=== PATIENT | male | born 1965 | race Caucasian/White ===

== ENCOUNTER 2021-03-19 14:36 | Emergency (ER) | payer OTHER, SELFPAY ==
[2021-03-19 14:48] VITALS: BP 146/89; RESP 16; BMI 29.9
--- NOTE | 2021-03-19 15:42 | ED_ITS ---
HPI - General Adult General Chief complaint: Skin/Abscess/Foreign Body Stated complaint: rash ?poison kailash Time Seen by Provider: 03/19/21 15:40 History of Present Illness HPI narrative: Patient complains of poison kailash to chest legs arms and hands for several days, getting worse day by day, no fever no pain no throat swelling no difficulty breathing Related Data Previous Rx's Medication Instructions Recorded cetirizine 10 mg capsule 10 mg PO DAILY PRN #14 cap 03/19/21 prednisone 10 mg tablet 10 mg PO DAILY #10 tab 03/19/21 Allergies Allergy/AdvReac Type Severity Reaction Status Date / Time No Known Allergies Allergy Unverified 04/15/20 15:35 [No Known Allergies*] Review of Systems Review of Systems: Positive for rash Negatives are no dizziness no weakness no headache no neck pain no difficulty breathing or swallowing no throat swelling no joint pains Yes all other systems are reviewed and are negative [facility] Past Medical History Source: nursing notes reviewed Medical History (Updated 03/20/21 @ 00:01 by Aniket Smith) Hypertension Social History Social History Advance Directives: No Advance Directives Information Provided: No Physical Exam Vital Signs: Vital Signs: Last Vital Signs Resp 16 03/19/21 14:48 BP 146/89 H 03/19/21 14:48 Body Mass Index 29.9 General appearance is no acute distress Head is normocephalic atraumatic Pupils no redness or discharge Pharynx is clear with no redness swelling or exudate, no drooling, voice is normal Neck is supple Chest is clear to auscultation bilateral Extremities full range of motion x4 Skin there are multiple excoriated linear vesicular rashes on arms legs and trunk, no surrounding erythema no significant tenderness no fluctuance no eviden ce of cellulitis or abscess Course Course Course Narrative: Patient with poison kailash is treated with a prednisone taper and antihistamine Discharge Plan Discharge Clinical Impression: Poison kaliash Patient Disposition: Home, Self-Care Additional Instructions: We are doing a tapering course of prednisone which often helps with poison kailash You can use cetirizine for itch If needed at night before bed if the itching is bad you could take 50 mg of Benadryl Return any time if worse Prescriptions: New prednisone 10 mg tablet 10 mg PO DAILY Qty: 10 RF: 0 cetirizine 10 mg capsule 10 mg PO DAILY PRN (Reason: Itch and rash) Qty: 14 RF: 0 Interventions: ED Discharge Assessment Last Done: 03/19/21 15:57 Discharge Date/Time: 03/19/21 15:58
[2021-03-19] MEDS: Loratadine 10 MG TABLET PO (15:53)
[2021-03-19] MEDS: predniSONE 20 MG TABLET 60 MG PO (15:53)
== END 2021-03-19 15:58 | disposition home or self-care (01) ==
PROVIDERS: Emergency Provider Internal Medicine; PCP Internal Medicine
DX: L23.7 Allergic contact dermatitis due to plants, except food (principal); I10 Essential (primary) hypertension
CPT/HCPCS: 99283